=== PATIENT | female | born 1995 | race Hispanic/Latino ===

== ENCOUNTER → 2017-03-30 | Outpatient (CLI) | payer OTHER ==
[2017-03-30 13:46] LABS: FOLLICLE STIMULATING HORMONE 6.2 mIU/mL
[2017-03-30 13:54] LABS: CONTROL LINE HCG INT CTR LINE PRESENT
[2017-03-30 14:20] LABS: GLUCOSE, FASTING 97 MG/DL (70-105); T UPTAKE 35 % (30-39); THYROXINE (T4) 11.5 UG/DL (4.5-12.0)
[2017-04-02 00:08] LABS: INSULIN FREE 34 uU/mL (.)
== END ==
LOC: M SMT 09:02
PROVIDERS: ATTEND Advanced Practice Midwife
DX: N92.6 Irregular menstruation, unspecified (principal)

== ENCOUNTER 2017-06-11 21:47 | Emergency (ER) | payer OTHER ==
[~2017-06-11] VITALS: Ht 167.6 cm; Wt 112.3 kg
[2017-06-11] MEDS ORDERED: PREN27TA3 PO (21:56)
[2017-06-11] MEDS ORDERED: METF500T13 PO (21:56)
[2017-06-11] MEDS ORDERED: VITA50TA43 PO (21:56)
[2017-06-11] MEDS ORDERED: CYCLOBENZAPRINE 10 MG TAB PO ONE (23:15)
[2017-06-11 23:32] VITALS: BP 130/79
[2017-06-12] MEDS ORDERED: CYCL10TA PO (00:02)
== END 2017-06-12 00:07 | disposition home or self-care (01) ==
LOC: M ED 21:47
DX: S46.812A Strain of other muscles, fascia and tendons at shoulder and upper arm level, left arm, initial encounter (principal); X58.XXXA Exposure to other specified factors, initial encounter; Y92.9 Unspecified place or not applicable; Y93.9 Activity, unspecified; Y99.9 Unspecified external cause status; E28.2 Polycystic ovarian syndrome; Z87.891 Personal history of nicotine dependence; Z79.899 Other long term (current) drug therapy

== ENCOUNTER → 2017-06-15 | Outpatient (CLI) | payer OTHER ==
[~2017-06-15] MED LIST: CYCL10TA PO; METF500T13 PO; PREN27TA3 PO; VITA50TA43 PO
[2017-06-15 11:38] LABS: PROGESTERONE 0.3 NG/ML
[2017-06-15 11:39] LABS: ESTRADIOL 51.4 PG/ML
[2017-06-19 08:06] LABS: INSULIN FREE 26 uU/mL (.)
== END ==
LOC: M LAB 09:21
PROVIDERS: ATTEND Advanced Practice Midwife
DX: E28.2 Polycystic ovarian syndrome (principal)

== ENCOUNTER → 2017-06-24 | Outpatient (CLI) | payer OTHER ==
[2017-06-24 14:39] LABS: FOLLICLE STIMULATING HORMONE 5.6 mIU/mL; LUTEINIZING HORMONE 5.4 mIU/mL
== END ==
LOC: M LAB 10:48
PROVIDERS: ATTEND Advanced Practice Midwife
DX: E28.2 Polycystic ovarian syndrome (principal)

== ENCOUNTER → 2017-07-06 | Outpatient (REF) | payer OTHER | LOC: M LAB REF 13:19 | PROVIDERS: ATTEND Advanced Practice Midwife | DX: Z12.4 Encounter for screening for malignant neoplasm of cervix (principal) ==

== ENCOUNTER → 2018-01-19 | Outpatient (REF) | payer OTHER | LOC: M LAB REF 13:28 | DX: J02.9 Acute pharyngitis, unspecified (principal) ==

== ENCOUNTER 2018-03-12 07:36 | Emergency (ER) | payer OTHER | END 2018-03-12 08:03 | disposition home or self-care (01) | LOC: M ED 07:36 | DX: M54.5 Low back pain (principal); E66.9 Obesity, unspecified; Z79.899 Other long term (current) drug therapy | CPT/HCPCS: 99282 ==

== ENCOUNTER 2019-09-25 10:18 | Emergency (ER) | payer BC, OTHER ==
[~2019-09-25] VITALS: Ht 165.1 cm; Wt 90.9 kg
[~2019-09-25 10:18] MED LIST changes: +IBUP-1022 PO; +NAPR-837 PO; +ULTR50TA8 PO
--- NOTE | 2019-09-25 11:51 | REP ---
LUMBOSACRAL SPINE: Five views of the lumbosacral spine are performed. No comparison fracture or malalignment is seen. There is normal lumbar lordosis with no spondylolysis or spondylolisthesis. There is a small spur at the superior margin of the T12 vertebral body. Disc spaces are well preserved. Posterior elements are intact. IMPRESSION: No fracture or dislocation. Small spur T12 anteriorly and superiorly. Electronically Signed by Antonio Smith MD 09/25/2019 04:05 P
[2019-09-25 12:37] VITALS: BP 117/62
== END 2019-09-25 12:38 | disposition home or self-care (01) ==
LOC: M ED 10:18
DX: G89.29 Other chronic pain (principal); M54.5 Low back pain; M25.78 Osteophyte, vertebrae; E11.9 Type 2 diabetes mellitus without complications; E28.2 Polycystic ovarian syndrome; F17.210 Nicotine dependence, cigarettes, uncomplicated

== ENCOUNTER 2020-03-02 05:06 | Emergency (ER) | payer BC, OTHER ==
[~2020-03-02] VITALS: Ht 165.1 cm; Wt 81.8 kg
[~2020-03-02 05:06] MED LIST changes: +CYCL-707 PO; -CYCL10TA PO
[2020-03-02 06:22] LABS: HEMATOCRIT 37.5 % (36.0-47.0); HEMOGLOBIN 11.7 g/dl (12.0-15.5); MEAN CORPUSCULAR HGB CONC 31.2 g/dl (32.0-36.5); MEAN CORPUSCULAR VOLUME 76.8 fl (80.0-96.0); PLATELET COUNT, AUTOMATED 413 10^3/uL (150-450); RED BLOOD COUNT 4.88 10^6/uL (4.00-5.40); WHITE BLOOD COUNT 18.5 10^3/uL (4.0-10.0)
--- NOTE | 2020-03-02 07:16 | REPVR ---
PROCEDURE INFORMATION: Exam: US Duplex Artery or Vein of the Abdominal and/or Reproductive Organs, Limited Exam date and time: 03/02/2020 6:50 AM Age: 24 years old Clinical indication: complicated by abdominal or pelvic pain; Left lower quadrant; First trimester; Gestational age or lmp: 3wks; ; Additional info: Vaginal bleeding TECHNIQUE: Imaging protocol: Real-time duplex ultrasound scan of the arterial or venous flow of the abdomen and/or reproductive organs, with color Doppler flow and spectral waveform analysis with image documentation. Exam focused on the region of clinical interest. Duplex images were received to evaluate vascular conditions. COMPARISON: No relevant prior studies available. FINDINGS: Arterial blood flow seen to the left ovary with peak systolic velocity of 5.3 centimeter/second and resistive index of 0.54. Arterial blood flow seen to the right ovary with peak systolic velocity of 14.2 centimeter/second and resistive index of 0.5. IMPRESSION: Unremarkable duplex of the right and left ovaries with no sonographic evidence of torsion. Complex left ovarian cyst-hemorrhagic cysts seen. PROCEDURE INFORMATION: Exam: US First Trimester, Transabdominal and US , Transvaginal Exam date and time: 03/02/2020 6:50 AM Age: 24 years old Clinical indication: complicated by abdominal or pelvic pain; Left lower quadrant; First trimester; Gestational age or lmp: 3wks; ; Additional info: Vaginal bleeding TECHNIQUE: Imaging protocol: Real-time transabdominal obstetrical ultrasound of the maternal pelvis and a first trimester , less than 14 weeks 0 days, with image documentation. Transvaginal imaging was used for better evaluation of the fetus and adnexa. COMPARISON: No relevant prior studies available. FINDINGS: Gestation: No intrauterine gestational sac is seen. MATERNAL: Uterus: The uterus measures 7.2 x 5.0 x 3.9 cm. No focal uterine mass is seen. The endometrium is echogenic measuring 8 mm in thickness. Cervix: Unremarkable. Right adnexa: The right ovary measures 4.6 x 2.3 x 2.4 cm and appears grossly unremarkable. Left adnexa: The left ovary measures 3.8 x 4.2 x 4.2 cm. There is a 3.1 x 2.8 x 1.4 cm left ovarian complex cyst with lacy form hypoechoic internal appearance suggestive of hemorrhagic cyst. Intraperitoneal space: No intraperitoneal free fluid. Other findings: Small free pelvic fluid seen. IMPRESSION: 1. Normal appearing endometrium with no intrauterine gestational sac seen. Findings are suggestive of of unknown location-probably early . Follow-up with beta HCG level and pelvic ultrasound to confirm development of intrauterine is suggested. 2. 3.1 x 2.8 x 1.4 cm complex left ovarian cyst likely hemorrhagic. Electronically signed by: Bakari Gilbert On 03/02/2020 07:15:58 AM
[2020-03-02 07:48] VITALS: BP 118/65
[2020-03-02 07:49] LABS: CHLAMYDIA DNA AMPLIFICATION NEGATIVE (NEGATIVE); GC DNA AMPLIFICATION NEGATIVE (NEGATIVE)
== END 2020-03-02 08:02 | disposition home or self-care (01) ==
LOC: M ED 05:06
DX: O20.9 Hemorrhage in early pregnancy, unspecified (principal); O99.281 Endocrine, nutritional and metabolic diseases complicating pregnancy, first trimester; E28.2 Polycystic ovarian syndrome; O24.111 Pre-existing type 2 diabetes mellitus, in pregnancy, first trimester; O99.331 Smoking (tobacco) complicating pregnancy, first trimester; F17.210 Nicotine dependence, cigarettes, uncomplicated; Z3A.01 Less than 8 weeks gestation of pregnancy

== ENCOUNTER → 2020-03-04 | Outpatient (CLI) | payer BC, OTHER | LOC: M LAB 09:09 | PROVIDERS: ATTEND Obstetrics & Gynecology | DX: Z34.81 Encounter for supervision of other normal pregnancy, first trimester (principal) ==

== ENCOUNTER 2020-06-06 05:47 | Emergency (ER) | payer BC, MEDICAID ==
[~2020-06-06] VITALS: Ht 165.1 cm; Wt 80.8 kg
[2020-06-06] MEDS ORDERED: ESCI20TA (05:52)
[2020-06-06] MEDS ORDERED: HYDR-643 (05:52)
[2020-06-06] MEDS ORDERED: BENZOCAINE 20% GEL 9GM TUBE (ANBESOL MAX STRENGTH) TOP ONE (06:30)
[2020-06-06] MEDS ORDERED: AUGM875T28 PO (06:55)
[2020-06-06] MEDS ORDERED: IBUP80TA PO (06:55)
[2020-06-06] MEDS ORDERED: KETOROLAC 30 MG/ML 1ML VIAL IM ONE (07:00)
[2020-06-06 07:31] VITALS: BP 128/74
== END 2020-06-06 07:33 | disposition home or self-care (01) ==
LOC: M ED 05:47
DX: K08.89 Other specified disorders of teeth and supporting structures (principal); F41.9 Anxiety disorder, unspecified; F32.9 Major depressive disorder, single episode, unspecified
CPT/HCPCS: 84702; 87880; 96372; 99284; J1885

== ENCOUNTER 2020-12-16 19:29 | Emergency (ER) | payer BC, OTHER ==
[~2020-12-16] VITALS: Ht 162.6 cm; Wt 89.4 kg
[~2020-12-16 19:29] MED LIST changes: +AUGM875T28 PO; +ESCI20TA16; +HYDR-643; +IBUP80TA PO
[2020-12-16] MEDS ORDERED: CYCL-707 PO (19:36)
[2020-12-16] MEDS ORDERED: SERT-141 PO (19:36)
[2020-12-16] MEDS ORDERED: LIDOCAINE 5% (LIDODERM) PATCH TD ONE (20:15)
[2020-12-16] MEDS ORDERED: **NOTE PATIENT COMMENT** MISC XX SCH (21:00)
--- NOTE | 2020-12-16 21:25 | REPVR ---
PROCEDURE INFORMATION: Exam: XR Right Ribs with PA Chest Exam date and time: 12/16/2020 8:35 PM Age: 25 years old Clinical indication: Chest wall pain; Right; Additional info: Right anterior/lateral rib pain; S/P forceful cough TECHNIQUE: Imaging protocol: XR Right ribs with PA chest. Views: 3 views COMPARISON: No relevant prior studies available. FINDINGS: Lungs: Unremarkable. No consolidation. Pleural spaces: Unremarkable. No pleural effusion. No pneumothorax. Heart/Mediastinum: Unremarkable. No cardiomegaly. Bones/joints: There is a healing fracture of the right 6th rib. No other acute or displaced fractures are seen. IMPRESSION: 1. Healing right 6th rib fracture. 2. No other acute findings. Electronically signed by: Loc Jones On 12/16/2020 21:26:31 PM
[2020-12-16] MEDS ORDERED: LIDO5DIS41 TOP (21:52)
[2020-12-16 21:56] VITALS: BP 108/57
== END 2020-12-16 22:01 | disposition home or self-care (01) ==
LOC: M ED 19:29
DX: R07.89 Other chest pain (principal); S22.31XD Fracture of one rib, right side, subsequent encounter for fracture with routine healing; X58.XXXA Exposure to other specified factors, initial encounter

== ENCOUNTER 2021-01-23 22:39 | Emergency (ER) | payer BC ==
[~2021-01-23] VITALS: Ht 167.6 cm; Wt 98.0 kg
[~2021-01-23 22:39] MED LIST changes: +LIDO5DIS41 TOP; +SERT-141 PO
[2021-01-23 22:41] VITALS: BP 130/84
[2021-01-23] MEDS ORDERED: ACET-861 PO (22:52)
== END 2021-01-24 04:52 | disposition left against medical advice (07) ==
LOC: M ED 22:39
DX: Z53.21 Procedure and treatment not carried out due to patient leaving prior to being seen by health care provider (principal)

== ENCOUNTER 2022-03-21 19:50 | Emergency (ER) | payer BC ==
[~2022-03-21] VITALS: Ht 165.1 cm; Wt 81.8 kg
[~2022-03-21 19:50] MED LIST changes: +ACET-861 PO
[2022-03-21 19:51] VITALS: BP 117/57
== END 2022-03-21 20:32 | disposition left against medical advice (07) ==
LOC: M ED 19:50
DX: Z53.21 Procedure and treatment not carried out due to patient leaving prior to being seen by health care provider (principal)

== ENCOUNTER → 2022-04-29 | Outpatient (CLI) | payer BC, OTHER ==
[2022-04-29 17:29] LABS: BASO # 0.1 10^3/uL (0.0-0.2); BASO % 0.5 % (0.0-1.0); EOS # 0.2 10^3/uL (0.0-0.5); EOS % 1.7 % (0.0-3.0); HEMATOCRIT 36.3 % (36.0-47.0); HEMOGLOBIN 11.5 g/dl (12.0-15.5); LYMPH # 1.9 10^3/uL (1.5-5.0); LYMPH % 18.4 % (24.0-44.0); MEAN CORPUSCULAR HEMOGLOBIN 26.2 pg (27.0-33.0); MEAN CORPUSCULAR HGB CONC 31.7 g/dl (32.0-36.5); MEAN CORPUSCULAR VOLUME 82.7 fl (80.0-96.0); MONO % 9.7 % (2.0-8.0); NEUTROPHILS # 7.2 10^3/uL (1.5-8.5); NEUTROPHILS % 69.4 % (36.0-66.0); PLATELET COUNT, AUTOMATED 306 10^3/uL (150-450); RED BLOOD COUNT 4.39 10^6/uL (4.00-5.40); WHITE BLOOD COUNT 10.4 10^3/uL (4.0-10.0)
[2022-04-29 20:55] LABS: GC DNA AMPLIFICATION NEGATIVE (NEGATIVE)
[2022-04-29 22:55] LABS: HEPATITIS C VIRUS ABY INDEX 0.1 INDEX (<0.8); HIV 1&2 SCREEN CENTAUR NEGATIVE (NEGATIVE)
== END ==
LOC: M PLALAB 11:27
PROVIDERS: ATTEND Obstetrics & Gynecology
DX: Z34.91 Encounter for supervision of normal pregnancy, unspecified, first trimester (principal)

== ENCOUNTER → 2022-06-28 | Outpatient (CLI) | payer OTHER | LOC: M WHC 11:28 | PROVIDERS: ATTEND Advanced Practice Midwife | DX: Z34.82 Encounter for supervision of other normal pregnancy, second trimester (principal); Z3A.19 19 weeks gestation of pregnancy ==

== ENCOUNTER → 2022-07-16 | Outpatient (CLI) | payer OTHER | LOC: M WHC 07:10 | PROVIDERS: ATTEND Advanced Practice Midwife | DX: Z34.82 Encounter for supervision of other normal pregnancy, second trimester (principal); Z3A.22 22 weeks gestation of pregnancy ==

== ENCOUNTER 2022-07-24 21:26 | Emergency (ER) | payer OTHER ==
[~2022-07-24] VITALS: Ht 165.1 cm; Wt 93.5 kg
[2022-07-25] MEDS ORDERED: AMOX875T2 PO (00:13)
[2022-07-25 00:33] VITALS: BP 116/73
== END 2022-07-25 00:35 | disposition home or self-care (01) ==
LOC: M ED 21:26
DX: H66.93 Otitis media, unspecified, bilateral (principal); E28.2 Polycystic ovarian syndrome; F41.9 Anxiety disorder, unspecified; F32.A Depression, unspecified; Z79.899 Other long term (current) drug therapy

== ENCOUNTER → 2022-08-09 | Outpatient (CLI) | payer OTHER ==
[~2022-08-09] MED LIST changes: +AMOX875T2 PO
== END ==
LOC: M WHC 08:44
PROVIDERS: ATTEND Advanced Practice Midwife
DX: O36.5920 Maternal care for other known or suspected poor fetal growth, second trimester, not applicable or unspecified (principal); Z3A.26 26 weeks gestation of pregnancy

== ENCOUNTER → 2022-08-16 | Outpatient (CLI) | payer OTHER | LOC: M WHC 10:43 | PROVIDERS: ATTEND Advanced Practice Midwife | DX: O36.5920 Maternal care for other known or suspected poor fetal growth, second trimester, not applicable or unspecified (principal); Z3A.27 27 weeks gestation of pregnancy ==

== ENCOUNTER → 2022-08-30 | Outpatient (CLI) | payer OTHER | LOC: M WHC 10:37 | PROVIDERS: ATTEND Advanced Practice Midwife | DX: O36.5920 Maternal care for other known or suspected poor fetal growth, second trimester, not applicable or unspecified (principal); Z3A.30 30 weeks gestation of pregnancy ==

== ENCOUNTER → 2022-09-06 | Outpatient (CLI) | payer OTHER | LOC: M WHC 10:31 | PROVIDERS: ATTEND Advanced Practice Midwife | DX: O36.5920 Maternal care for other known or suspected poor fetal growth, second trimester, not applicable or unspecified (principal); Z3A.30 30 weeks gestation of pregnancy ==

== ENCOUNTER → 2022-09-20 | Outpatient (CLI) | payer OTHER | LOC: M WHC 10:05 | PROVIDERS: ATTEND Advanced Practice Midwife | DX: O36.5920 Maternal care for other known or suspected poor fetal growth, second trimester, not applicable or unspecified (principal); Z3A.32 32 weeks gestation of pregnancy ==

== ENCOUNTER → 2022-10-12 | Outpatient (REF) | payer OTHER | LOC: M PLALAB 09:02 | PROVIDERS: ATTEND Obstetrics & Gynecology | DX: Z3A.36 36 weeks gestation of pregnancy (principal) ==

== ENCOUNTER 2022-10-18 08:51 | Emergency (ER) | payer OTHER ==
[~2022-10-18] VITALS: Ht 165.1 cm; Wt 106.5 kg
[2022-10-18] MEDS ORDERED: PRENTAB9 PO (09:01)
[2022-10-18] MEDS ORDERED: AMOX500C PO (10:03)
[2022-10-18 10:42] VITALS: BP 135/86
== END 2022-10-18 10:52 | disposition home or self-care (01) ==
LOC: M ED 08:51
DX: O99.513 Diseases of the respiratory system complicating pregnancy, third trimester (principal); J06.9 Acute upper respiratory infection, unspecified; O99.891 Other specified diseases and conditions complicating pregnancy; H66.91 Otitis media, unspecified, right ear; Z3A.36 36 weeks gestation of pregnancy; Z79.810 Long term (current) use of selective estrogen receptor modulators (SERMs)

== ENCOUNTER 2022-10-19 08:30 | Emergency (ER) | payer OTHER ==
[~2022-10-19] VITALS: Ht 162.6 cm; Wt 106.6 kg
[~2022-10-19 08:30] MED LIST changes: +AMOX500C PO; +PRENTAB9 PO
[2022-10-19 08:31] VITALS: BP 126/77
== END 2022-10-19 09:58 | disposition left against medical advice (07) ==
LOC: M ED 08:30
DX: Z53.21 Procedure and treatment not carried out due to patient leaving prior to being seen by health care provider (principal)

== ENCOUNTER 2022-11-16 01:04 | Inpatient (IN) | payer OTHER ==
[2022-11-16] VITALS (42 sets, daily range): BP systolic 96–178; BP diastolic 52–97
[~2022-11-16] VITALS: Ht 165.1 cm; Wt 110.1 kg
[2022-11-16] MEDS ORDERED: LACTATED RINGER'S 1000 ML IV STA (01:28)
[2022-11-16] MEDS ORDERED: OXYTOCIN INJ 10UNITS/ML 1ML VIAL IM PRN (01:30)
[2022-11-16] MEDS ORDERED: LIDOCAINE 1% MDV 20ML VIAL INFIL PRN (01:30)
[2022-11-16] MEDS ORDERED: METHYLERGONOVINE MALEATE 0.2MG/ML 1ML VIAL IM PRN (01:30)
[2022-11-16] MEDS ORDERED: OXYTOCIN DRIP 30 UNITS in IV 1 EA IV PRN (01:30)
[2022-11-16] MEDS ORDERED: TRANEXAMIC ACID INJection 1,000 MG in NS 100 ML IV PRN (01:30)
[2022-11-16] MEDS ORDERED: CARBOPROST TROMETHAMINE 250 MCG/ML AMP IM PRN (01:30)
[2022-11-16 01:55] LABS: HEMATOCRIT 32.6 % (36.0-47.0); HEMOGLOBIN 10.1 g/dl (12.0-15.5); MEAN CORPUSCULAR HEMOGLOBIN 23.2 pg (27.0-33.0); MEAN CORPUSCULAR VOLUME 74.9 fl (80.0-96.0); PLATELET COUNT, AUTOMATED 385 10^3/uL (150-450); RED BLOOD COUNT 4.35 10^6/uL (4.00-5.40); WHITE BLOOD COUNT 17.2 10^3/uL (4.0-10.0)
[2022-11-16] MEDS ORDERED: ePHEDrine SULFATE 25 MG/5 ML(5MG/ML) SYRINGE IVP PRN (02:30)
[2022-11-16] MEDS ORDERED: NALOXONE INJ 0.4MG/1ML VIAL IV PRN ×3 (02:30→14:55)
[2022-11-16] MEDS ORDERED: diphenhydrAMINE 50MG/ML VIAL IV PRN ×2 (02:30→14:55)
[2022-11-16] MEDS ORDERED: EPIDURAL/PCA KEYS XX PRN (02:30)
[2022-11-16] MEDS ORDERED: LR 500 ML IV PRN (02:30)
[2022-11-16] MEDS ORDERED: ONDANSETRON 4MG 2ML VIAL IV PRN ×3 (02:30→14:55)
[2022-11-16] MEDS: FENTANYL/ROPIVACAINE/NACL BAG 100 ML EPIDURAL SCH ×3 (02:39→22:30)
[2022-11-16] MEDS: LR 1,000 ML IV SCH ×5 (02:41→22:25)
[2022-11-16 05:19] LABS: HEMOGLOBIN A1c 5.1 % (4.0-6.0)
[2022-11-16] MEDS ORDERED: OXYTOCIN DRIP 30 UNITS in IV 1 EA IV SCH ×2 (06:20→14:25)
[2022-11-16] MEDS ORDERED: ceFAZolin SOD 2 GM in IV 1 EA IV ONE (12:55)
[2022-11-16] MEDS ORDERED: AZITHROMYCIN INJ 500 MG, VIAL MATE ADAPTER 1 EACH in NS 250 ML IV ONE (12:55)
[2022-11-16] MEDS ORDERED: BICITRA 30ML SOLN UDC PO ONE (12:55)
[2022-11-16] MEDS ORDERED: LIDOCAINE 2% W/EPINEPHRINE 20ML VIAL **PRES FREE As Ordered ONE (13:07)
[2022-11-16] MEDS ORDERED: OXYTOCIN INJ 10UNITS/ML 1ML VIAL As Ordered ONE (13:16)
[2022-11-16] MEDS ORDERED: KETOROLAC 60MG 2ML VIAL As Ordered ONE (13:16)
[2022-11-16] MEDS ORDERED: MORPHINE PRES-FREE INJ 10 MG/10 ML VIAL As Ordered ONE (13:16)
[2022-11-16 14:08] LABS: CORD GAS HCO3 V 24.2 MEQ/L; CORD GAS O2 SAT V 54.2 %; CORD GAS PCO2 V 46.5 mmHg; CORD GAS PH V 7.335 UNITS; CORD GAS SBC V 21.7 MEQ/L; CORD GAS TCO2 V 25.7 MEQ/L
[2022-11-16 14:10] LABS: CORD GAS ABE A -2.5; CORD GAS HCO3 A 26.1 MEQ/L; CORD GAS O2 SAT A 32.6 %; CORD GAS PCO2 A 60.9 mmHg; CORD GAS PH A 7.25 UNITS; CORD GAS PO2 A 18.8 mmHg; CORD GAS SBC A 20.8 MEQ/L
[2022-11-16] MEDS ORDERED: RHOGAM 300MCG (1500IU) INJ IM SCH (14:25)
[2022-11-16] MEDS ORDERED: SIMETHICONE 80MG CHEW TAB PO PRN (14:25)
[2022-11-16] MEDS ORDERED: MOM 30ML SUSPENSION UDC PO PRN (14:25)
[2022-11-16] MEDS ORDERED: PERCOCET 5MG/325MG TAB PO PRN (14:25)
[2022-11-16] MEDS ORDERED: METOCLOPRAMIDE INJ 10MG/2ML VIAL IV PRN (14:55)
[2022-11-16] MEDS ORDERED: **NOTE PATIENT COMMENT** MISC XX SCH (14:55)
[2022-11-16] MEDS: SLF 3 ML SYR IV SCH ×2 (14:55→22:55)
[2022-11-16] MEDS ORDERED: oxyCODONE 5MG TAB PO PRN (14:55)
[2022-11-16] MEDS ORDERED: fentaNYL 100 MCG/2 ML INJECTION IV PRN (14:55)
[2022-11-16] MEDS ORDERED: LR 1,000 ML IV SCH (14:55)
[2022-11-16] MEDS: KETOROLAC 30 MG/ML 1ML VIAL IV SCH (20:11)
[2022-11-16] MEDS: DOCUSATE SODIUM 100MG CAPSULE PO SCH (20:11)
[2022-11-17 02:00] VITALS: BP 107/59
[2022-11-17] MEDS: KETOROLAC 30 MG/ML 1ML VIAL IV SCH ×2 (02:20→09:28)
[2022-11-17 05:31] VITALS: BP 105/59
[2022-11-17 06:44] LABS: HEMATOCRIT 26.6 % (36.0-47.0); HEMOGLOBIN 8.2 g/dl (12.0-15.5); MEAN CORPUSCULAR HEMOGLOBIN 23.7 pg (27.0-33.0); MEAN CORPUSCULAR HGB CONC 30.8 g/dl (32.0-36.5); MEAN CORPUSCULAR VOLUME 76.9 fl (80.0-96.0); PLATELET COUNT, AUTOMATED 311 10^3/uL (150-450); RED BLOOD COUNT 3.46 10^6/uL (4.00-5.40)
[2022-11-17] MEDS: DOCUSATE SODIUM 100MG CAPSULE PO SCH ×2 (09:28→19:56)
[2022-11-17] MEDS: PRENATAL VITAMINS CHEWABLE TABLET PO SCH (09:28)
[2022-11-17] MEDS: SLF 3 ML SYR IV SCH (09:29)
[2022-11-17 10:00] VITALS: BP 111/60
[2022-11-17] MEDS ORDERED: COLA100C5 PO (10:01)
[2022-11-17] MEDS ORDERED: IBUP80TA PO (10:01)
[2022-11-17] MEDS ORDERED: PERCOCET PO (10:01)
[2022-11-17 14:00] VITALS: BP 105/55
[2022-11-17] MEDS: IBUPROFEN 800 MG TAB PO SCH (17:19)
[2022-11-17] MEDS: PERCOCET 5MG/325MG TAB PO PRN (20:01)
[2022-11-17 22:00] VITALS: BP 108/58
[2022-11-18] MEDS: IBUPROFEN 800 MG TAB PO SCH ×2 (00:43→09:30)
[2022-11-18 06:00] VITALS: BP 101/59
[2022-11-18] MEDS ORDERED: MEASLES,MUMPS,RUBELLA VACCINE INJ (MMR-II) SC.IMMUN ONE (09:00)
[2022-11-18] MEDS: PRENATAL VITAMINS CHEWABLE TABLET PO SCH (09:30)
[2022-11-18] MEDS: PERCOCET 5MG/325MG TAB PO PRN (09:30)
[2022-11-18] MEDS: DOCUSATE SODIUM 100MG CAPSULE PO SCH (09:30)
[2022-11-18 10:00] VITALS: BP 115/61
== END 2022-11-18 13:30 | disposition home or self-care (01) | DRG 540 ==
LOC: M LDO 01:04 → M LDI 01:29 → M OBS 16:20
PROVIDERS: ADMIT Advanced Practice Midwife; ATTEND Advanced Practice Midwife
PROC: 3E033VJ Introduction of Other Hormone into Peripheral Vein, Percutaneous Approach (ICD-10-PCS; 2022-11-16)
PROC: 10D00Z1 Extraction of Products of Conception, Low, Open Approach (ICD-10-PCS; principal; 2022-11-16 13:22)
DX: O48.0 Post-term pregnancy (principal); O61.0 Failed medical induction of labor; Z37.0 Single live birth; Z3A.41 41 weeks gestation of pregnancy; Z87.891 Personal history of nicotine dependence

== ENCOUNTER 2023-07-20 19:40 | Emergency (ER) | payer OTHER ==
[~2023-07-20] VITALS: Ht 165.1 cm; Wt 79.3 kg
[~2023-07-20 19:40] MED LIST changes: +COLA100C5 PO; +PERCOCET PO
[2023-07-20 20:41] LABS: BASO # 0.1 10^3/uL (0.0-0.2); BASO % 0.6 % (0.0-1.0); EOS # 0.2 10^3/uL (0.0-0.5); HEMATOCRIT 31.3 % (36.0-47.0); HEMOGLOBIN 9.6 g/dl (12.0-15.5); LYMPH # 2.1 10^3/uL (1.5-5.0); LYMPH % 19.1 % (24.0-44.0); MEAN CORPUSCULAR HEMOGLOBIN 22.7 pg (27.0-33.0); MEAN CORPUSCULAR HGB CONC 30.7 g/dl (32.0-36.5); MONO # 0.9 10^3/uL (0.0-0.8); MONO % 8.3 % (2.0-8.0); NEUTROPHILS # 7.5 10^3/uL (1.5-8.5); NEUTROPHILS % 69.9 % (36.0-66.0); PLATELET COUNT, AUTOMATED 382 10^3/uL (150-450); RED BLOOD COUNT 4.23 10^6/uL (4.00-5.40); WHITE BLOOD COUNT 10.7 10^3/uL (4.0-10.0)
[2023-07-20 20:54] LABS: INR 1.18; PROTHROMBIN TIME 14.6 SECONDS (12.5-14.5)
[2023-07-20 20:55] LABS: PARTIAL THROMBOPLASTIN TIME 29.8 SECONDS (24.8-34.2)
[2023-07-20] MEDS ORDERED: POTASSIUM CHLORIDE 10MEQ SR TABLET PO ONE (20:55)
[2023-07-20 21:00] LABS: CK-MB VALUE MASS 1.3 NG/ML (<3.6)
[2023-07-20 21:05] LABS: FREE T4 1.21 NG/DL (0.89-1.76); THYROID STIMULATING HORMONE 1.676 uIU/ML (0.55-4.78)
[2023-07-20 21:07] LABS: CPK CREATINE PHOSPHOKINASE 116 U/L (34-145); MB/CK RELATIVE INDEX 1.12 (< OR =4)
[2023-07-20 22:30] VITALS: BP 117/60; TEMP 97.7; O2SAT 98
== END 2023-07-20 22:33 | disposition home or self-care (01) ==
LOC: EDBD 19:40 → M ED 19:40
DX: D64.9 Anemia, unspecified (principal); F41.9 Anxiety disorder, unspecified; F32.A Depression, unspecified; E28.2 Polycystic ovarian syndrome; F90.9 Attention-deficit hyperactivity disorder, unspecified type; F17.200 Nicotine dependence, unspecified, uncomplicated; F12.10 Cannabis abuse, uncomplicated; F10.10 Alcohol abuse, uncomplicated; Z79.810 Long term (current) use of selective estrogen receptor modulators (SERMs); Z79.1 Long term (current) use of non-steroidal anti-inflammatories (NSAID); Z79.899 Other long term (current) drug therapy

== ENCOUNTER 2023-09-15 20:32 | Emergency (ER) | payer OTHER ==
[~2023-09-15] VITALS: Ht 165.1 cm; Wt 78.5 kg
[2023-09-15 20:33] VITALS: TEMP 98.6
[2023-09-16 01:05] VITALS: BP 110/62; O2SAT 98
== END 2023-09-16 01:05 | disposition home or self-care (01) ==
LOC: M ED 20:32
DX: O20.0 Threatened abortion (principal); O34.81 Maternal care for other abnormalities of pelvic organs, first trimester; N83.291 Other ovarian cyst, right side; F17.200 Nicotine dependence, unspecified, uncomplicated; Z79.810 Long term (current) use of selective estrogen receptor modulators (SERMs); Z79.899 Other long term (current) drug therapy; Z3A.01 Less than 8 weeks gestation of pregnancy

== ENCOUNTER 2025-01-27 21:49 | Emergency (ER) | payer OTHER ==
[~2025-01-27] VITALS: Ht 165.1 cm; Wt 79.5 kg
[2025-01-27 22:36] LABS: HEMATOCRIT 33.1 % (36.0-47.0); HEMOGLOBIN 9.5 g/dl (12.0-15.5); MEAN CORPUSCULAR HEMOGLOBIN 20.3 pg (27.0-33.0); MEAN CORPUSCULAR HGB CONC 28.7 g/dl (32.0-36.5); MEAN CORPUSCULAR VOLUME 70.7 fl (80.0-96.0); PLATELET COUNT, AUTOMATED 400 10^3/uL (150-450); RED BLOOD COUNT 4.68 10^6/uL (4.00-5.40); WHITE BLOOD COUNT 10.5 10^3/uL (4.0-10.0)
[2025-01-27 22:55] LABS: AMPHETAMINES LEVEL URINE NEGATIVE (NEGATIVE)
[2025-01-27 22:56] LABS: BARBITURATES URINE NEGATIVE (NEGATIVE); BENZODIAZEPINES URINE NEGATIVE (NEGATIVE); COCAINE METABOLITE URINE NEGATIVE (NEGATIVE); METHADONE URINE NEGATIVE (NEGATIVE); OPIATES URINE NEGATIVE (NEGATIVE); PHENCYCLIDINE URINE NEGATIVE (NEGATIVE)
[2025-01-27 22:58] LABS: ETHYL ALCOHOL (ETHANOL) 0.006 % (0.000-0.010)
[2025-01-27 23:00] LABS: ALBUMIN 3.7 G/DL (3.2-5.2); ALKALINE PHOSPHATASE 69 U/L (35-104); ALT/SGPT 21 U/L (7.0-40); AST/SGOT 19 U/L (<34); BILIRUBIN,DIRECT 0.1 MG/DL (<0.4); BILIRUBIN,TOTAL 0.4 MG/DL (0.3-1.2); BLOOD UREA NITROGEN 17 MG/DL (9-23); CALCIUM LEVEL 9.1 MG/DL (8.5-10.1); CARBON DIOXIDE LEVEL 28 MMOL/L (20-31); CHLORIDE LEVEL 107 MMOL/L (98-107); CREATININE FOR GFR 0.68 MG/DL (0.55-1.30); GLOMERULAR FILTRATION RATE > 90.0 (>60); GLUCOSE, FASTING 82 MG/DL (60-100); POTASSIUM SERUM 4.7 MMOL/L (3.5-5.1); SALICYLATE LEVEL < 3.0 MG/DL (<30); SODIUM LEVEL 143 MMOL/L (136-145); TOTAL PROTEIN 6.9 G/DL (5.7-8.2)
[2025-01-27 23:08] LABS: CANNABINOIDS URINE POSITIVE (NEGATIVE)
[2025-01-28 00:27] VITALS: BP 127/75; TEMP 97.7; O2SAT 100
== END 2025-01-28 00:55 | disposition home or self-care (01) ==
LOC: M ED 21:49
DX: F43.0 Acute stress reaction (principal); F32.A Depression, unspecified; F12.90 Cannabis use, unspecified, uncomplicated; F10.90 Alcohol use, unspecified, uncomplicated; Z79.899 Other long term (current) drug therapy; Z79.1 Long term (current) use of non-steroidal anti-inflammatories (NSAID); Z79.891 Long term (current) use of opiate analgesic

== ENCOUNTER → 2025-08-21 | Outpatient (CLI) | payer OTHER ==
[~2025-08-21] MED LIST changes: -IBUP-1022 PO; +IBUP600T42 PO; +LIDO1ADH93 TOP; -LIDO5DIS41 TOP
[2025-08-21 13:32] LABS: PLATELET COUNT, AUTOMATED 356 10^3/uL (150-450)
[2025-08-21 13:54] LABS: GLUCOSE CHALLENGE TEST 1 HOUR 79 MG/DL (LESS THAN 140)
[2025-08-21 14:26] LABS: HIV 1&2 SCREEN NEGATIVE (NEGATIVE)
[2025-08-21 14:34] LABS: HEPATITIS C VIRUS ABY INDEX < 0.02 INDEX (<0.8)
[2025-08-21 15:44] LABS: Trichomonas vaginalis (AMP) NOT DETECTED (NEGATIVE)
[2025-08-21 16:07] LABS: GC DNA AMPLIFICATION NEGATIVE (NEGATIVE)
== END ==
LOC: M PLALAB 07:03
PROVIDERS: ATTEND Obstetrics & Gynecology
DX: Z34.80 Encounter for supervision of other normal pregnancy, unspecified trimester (principal)

== ENCOUNTER → 2025-08-21 | Outpatient (CLI) | payer BC, MEDICAID, OTHER | LOC: M WHC 07:01 | PROVIDERS: ATTEND Obstetrics & Gynecology | DX: Z34.83 Encounter for supervision of other normal pregnancy, third trimester (principal); Z3A.29 29 weeks gestation of pregnancy ==